=== PATIENT | male | born 1970 | race Caucasian/White ===

== ENCOUNTER 2019-01-10 01:12 | Emergency (ER) | payer OTHER ==
[~2019-01-10] VITALS: Ht 175.3 cm; Wt 88.5 kg
[~2019-01-10 01:12] MED LIST: (None)15 G1 TOP; Cyclobenzaprine5 MG PO; Flonase 0.05% N16 GM; HYDACE5 PO; IBUP600 PO; NAPR500 PO; Naprosyn500 MG PO; OXYM.05NI; POLTRIOPSO OD; Percocet 10-321 EACH PO; Percocet 5-3251 EACH PO; Pseudoephedrine30 MG PO; Triamcinolone A15 G4 TOP
== END 2019-01-10 06:38 | disposition left against medical advice (07) ==
LOC: ER 01:12
DX: Z53.21 Procedure and treatment not carried out due to patient leaving prior to being seen by health care provider (principal); R20.0 Anesthesia of skin

== ENCOUNTER 2020-03-17 17:30 | Emergency (ER) | payer OTHER ==
[~2020-03-17] VITALS: Ht 175.3 cm; Wt 86.2 kg
[2020-03-17] MEDS ORDERED: IBUP400 PO (19:10)
== END 2020-03-17 19:19 | disposition home or self-care (01) ==
LOC: ER 17:30
DX: R10.10 Upper abdominal pain, unspecified (principal); R06.02 Shortness of breath; M54.5 Low back pain; F17.210 Nicotine dependence, cigarettes, uncomplicated; Z59.0 Homelessness; Z88.0 Allergy status to penicillin; Z91.013 Allergy to seafood; W18.30XA Fall on same level, unspecified, initial encounter; Y93.89 Activity, other specified
CPT/HCPCS: 72100; 99283-25

== ENCOUNTER 2020-03-18 12:55 | Inpatient (IN) | payer OTHER ==
[~2020-03-18] VITALS: Ht 170.2 cm; Wt 93.3 kg
[~2020-03-18 12:55] MED LIST changes: +IBUP400 PO
[2020-03-18 13:46] LABS: BASOPHILS ABSOLUTE AUTO 0.05 K/mm3 (0.00-0.23); BASOPHILS PERCENT AUTO 1 % (0-2); EOSINOPHILS ABSOLUTE AUTO 0.26 K/mm3 (0.00-0.68); EOSINOPHILS PERCENT AUTO 3 % (0-6); IMMATURE GRAN ABSOLUTE AUTO 0.03 K/mm3 (0.00-0.10); IMMATURE GRAN PERCENT AUTO 0 % (0-1); LYMPHOCYTES ABSOLUTE AUTO 1.97 K/mm3 (0.84-5.20); LYMPHOCYTES PERCENT AUTO 26 % (21-46); MONOCYTES ABSOLUTE AUTO 1.18 K/mm3 (0.16-1.47); MONOCYTES PERCENT AUTO 15 % (4-13); Mean Corpuscular HGB 29.6 pg (26.0-34.0); Mean Corpuscular HGB Conc 32.4 g/dL (31.5-36.5); Mean Corpuscular Volume 91 fL (80-100); Mean Platelet Volume 9.8 fL (9.1-12.4); NEUTROPHILS ABSOLUTE AUTO 4.22 K/mm3 (1.96-9.15); NEUTROPHILS PERCENT AUTO 55 % (41-73); Platelet Count 318 K/mm3 (150-400); RDW Coefficient Variation 13.9 % (11.7-14.2); RDW Standard Deviation 47.3 fL (35.1-46.3); Red Blood Cell Count 4.05 M/mm3 (4.30-5.90); White Blood Cell Count 7.71 K/mm3 (4.00-11.30)
[2020-03-18 14:00] LABS: Alanine Aminotransfer (ALT/SGP 76 U/L (12-78); Albumin, Blood 2.8 g/dL (3.4-5.0); Albumin/Globulin Ratio 0.8 (0.8-1.8); Alk Phos 127 U/L (50-136); Anion Gap 6 mmol/L (6-16); Aspartate Aminotrans (AST/SGOT 26 U/L (12-37); Bilirubin, Total 0.4 mg/dL (0.1-1.0); Blood Urea Nitrogen 37 mg/dL (8-24); Bun/Creatinine Ratio 34.3 (12.0-20.0); CO2, Blood 22 mmol/L (21-32); Calcium, Blood 8.1 mg/dL (8.5-10.1); Chloride, Blood 113 mmol/L (98-108); Creatinine, Blood 1.08 mg/dL (0.60-1.20); Globulin, Blood 3.7 g/dL (2.2-4.0); Glomerular Filtration Rate >60 (60-); Glucose, Blood 121 mg/dL (70-99); Potassium, Blood 4.9 mmol/L (3.5-5.5); Sodium, Blood 141 mmol/L (136-145); Total Protein, Blood 6.5 g/dL (6.4-8.2)
[2020-03-18 16:39] LABS: Source, Urine Clean Catch
[2020-03-18 16:45] LABS: Appearance, Urine Clear (Clear); Bilirubin, Urine Neg (Neg); Blood, Urine 5+ (Neg); Color, Urine Yellow (P-Yellow); Glucose Qualitative, Urine Neg (Neg); Ketones, Urine Neg (Neg); Leukocyte Esterase, Urine Neg (Neg); Nitrite, Urine Neg (Neg); Protein, Urine 4+ (Neg); Urobilinogen, Urine NORM (Normal)
[2020-03-18 16:55] LABS: Bacteria Rare /hpf; Squamous Epithelial Cells Not Seen /hpf (Few)
[2020-03-18 16:57] LABS: Yeast/Fungi Urine Few /hpf
[2020-03-18 19:58] LABS: U Amphetamine Screen Not Detected; U Barbituate Screen Not Detected; U Benzodiazapine Screen Not Detected; U Buprenorphine Screen Not Detected; U Cannabinoids Screen Not Detected; U Cocaine Screen Not Detected; U Methadone Screen Not Detected; U Methamphetamine Screen DETECTED; U Opiates Screen Not Detected; U Oxycodone Screen Not Detected; U Phencyclidine Screen Not Detected; U Propoxyphene Screen Not Detected
--- NOTE | 2020-03-19 06:52 | NUR ---
PATIENT ADMITTED FROM THE ED WITH ELEVATED BLOOD PRESSURES ALONG WITH LOWER EXTREMITY EDEMA. PATIENT STATES THAT HE HAS NEVER BEEN DIAGNOSED WITH A HEART CONDITION. BLOOD PRESSURES WERE UNRESPONSIVE TO APRESOLINE OR CATAPRES. BLOOD PRESSURE DOES RESPOND TO NITRO PASTE WHICH BROUGHT HIS BLOOD PRESSURES TO 140'S SYSTOLIC. HE IS COMPLAINING OF A HEADACHE THIS MORNING SO NITRO PASTE WAS REMOVED A RESULT. VSS, NO COMPLAINTS OF PAIN. WILL CONTINUE TO MONITOR UNTIL END OF SHIFT
[2020-03-19 07:07] LABS: BASOPHILS ABSOLUTE AUTO 0.05 K/mm3 (0.00-0.23); BASOPHILS PERCENT AUTO 1 % (0-2); EOSINOPHILS ABSOLUTE AUTO 0.26 K/mm3 (0.00-0.68); EOSINOPHILS PERCENT AUTO 3 % (0-6); Hematocrit 35.4 % (37.0-53.0); Hemoglobin 11.5 g/dL (13.5-17.5); IMMATURE GRAN ABSOLUTE AUTO 0.03 K/mm3 (0.00-0.10); IMMATURE GRAN PERCENT AUTO 0 % (0-1); LYMPHOCYTES PERCENT AUTO 17 % (21-46); MONOCYTES ABSOLUTE AUTO 1.18 K/mm3 (0.16-1.47); MONOCYTES PERCENT AUTO 12 % (4-13); Mean Corpuscular HGB 29.9 pg (26.0-34.0); Mean Corpuscular HGB Conc 32.5 g/dL (31.5-36.5); Mean Corpuscular Volume 92 fL (80-100); Mean Platelet Volume 9.7 fL (9.1-12.4); NEUTROPHILS ABSOLUTE AUTO 6.46 K/mm3 (1.96-9.15); NEUTROPHILS PERCENT AUTO 68 % (41-73); Platelet Count 321 K/mm3 (150-400); RDW Coefficient Variation 14.5 % (11.7-14.2); RDW Standard Deviation 48.6 fL (35.1-46.3); Red Blood Cell Count 3.85 M/mm3 (4.30-5.90); White Blood Cell Count 9.58 K/mm3 (4.00-11.30)
[2020-03-19 07:27] LABS: Anion Gap 6 mmol/L (6-16); Blood Urea Nitrogen 39 mg/dL (8-24); Bun/Creatinine Ratio 33.6 (12.0-20.0); CO2, Blood 20 mmol/L (21-32); Chloride, Blood 115 mmol/L (98-108); Creatinine, Blood 1.16 mg/dL (0.60-1.20); Glomerular Filtration Rate >60 (60-); Glucose, Blood 102 mg/dL (70-99); Potassium, Blood 5.3 mmol/L (3.5-5.5); Sodium, Blood 141 mmol/L (136-145); Troponin I <0.015 ng/mL (0.000-0.040)
--- NOTE | 2020-03-19 08:56 | NUR ---
pt sleepy this am, but wakes easily a/ox3, pleasant and coopertive with care, follows commands well, denies pain, lungs are clear dim in bases, resp even and unlabored, no cough noted, hrr, tele in place running sr per monitor, see strip, trace edema noted to b/l le, ppp+2, cap refill <3sec, vs stable, afebrile, iv site is clear and patent, btx4, abd flat soft nontender, voids without diff, skin c/w/d, maew, ind in room, jimmy, call light in reach.
--- NOTE | 2020-03-19 14:03 | NUR ---
Echocardiogram performed.
--- NOTE | 2020-03-19 15:24 | NUR ---
pt will be moving to medical floor, informed him. started him on metoprolol, b/p came down. doing ok but is working hard to breath, his sats are in the 90's, placed him on 2 liters 02 via n/c for comfort, his breathing did relax. daughter in room to visit, will take him via wheelchair when room is ready. call light in reach.
--- NOTE | 2020-03-19 15:37 | NUR ---
pt leaving for medical floor via wheelchair with power electronics research engineer in attendence, he has his belongings.
--- NOTE | 2020-03-19 15:57 | NUR ---
PATIENT TRANSFERRED FROM PCU 4 TO ROOM 304, REPORT RECEIVED FROM ARNAUD MORRIS. PATIENT IS A/OX4, UP INDEPENDENTLY IN RPPM. MAINTAINING SATS ON RA, B/P IMPROVING. DAUGHTER AT BEDSIDE. PATIENT ORIENTED TO ROOM AND USE OF CALL LIGHT. 20G IV TO R AC WNL AND SL. SR/ST ON TELE PER REPORT. TOLERATING CARDIAC DIET.
--- NOTE | 2020-03-20 04:05 | NUR ---
SHIFT SUMMARY PT HAD SOME DIFFICULTY FALLING ASLEEP BUT SLEPT WELL ONCE ASLEEP. PT HAD A SHOWER AT THE START OF THE SHIFT. FOLLOWING SHOWER PT WAS VERY SHORT OF BREATH. PT BECOMES SHORT OF BREATH EASILY WITH LITTLE EXERTION. 2 L O2 NC PLACED ON PT FOR A SHORT WHILE WHILE SHORT OF BREATH. PT DID NOT RECOVER QUICKLY FROM EXERTIONAL SOB. PT HIGH 90'S ON RA. PT HYPERTENSIVE THIS EVENING WITH SYSTOLIC PRESSURES IN THE 170'S. 12.5 MG METOPROLOL GIVEN ALONG WITH 1/2 INCH OF NITRO PASTE TO LEFT CHEST WALL WITH ONLY SLIGHT IMPROVEMENT. APRESOLINE 20 MG GIVEN. BLOOD PRESSURES FINALLY IMPROVED TO SYSTOLIC IN THE 140'S. PT SR 84 THIS EVENING ON TELEMETRY. TYLENOL GIVEN FOR SLIGHT HEADACHE AND PREVENTION OF WORSENING HEADACHE WITH NITRO PASTE. PT RESTING IN BED AT THIS TIME. WILL CONTINUE TO MONITOR AND REPORT TO DAY RN.
[2020-03-20 05:00] LABS: BASOPHILS ABSOLUTE AUTO 0.08 K/mm3 (0.00-0.23); BASOPHILS PERCENT AUTO 1 % (0-2); EOSINOPHILS ABSOLUTE AUTO 0.45 K/mm3 (0.00-0.68); EOSINOPHILS PERCENT AUTO 5 % (0-6); Hematocrit 35.1 % (37.0-53.0); Hemoglobin 11.3 g/dL (13.5-17.5); IMMATURE GRAN ABSOLUTE AUTO 0.02 K/mm3 (0.00-0.10); IMMATURE GRAN PERCENT AUTO 0 % (0-1); LYMPHOCYTES ABSOLUTE AUTO 2.24 K/mm3 (0.84-5.20); LYMPHOCYTES PERCENT AUTO 24 % (21-46); MONOCYTES ABSOLUTE AUTO 1.54 K/mm3 (0.16-1.47); MONOCYTES PERCENT AUTO 16 % (4-13); Mean Corpuscular HGB 29.3 pg (26.0-34.0); Mean Corpuscular HGB Conc 32.2 g/dL (31.5-36.5); Mean Corpuscular Volume 91 fL (80-100); Mean Platelet Volume 10.1 fL (9.1-12.4); NEUTROPHILS ABSOLUTE AUTO 5.16 K/mm3 (1.96-9.15); NEUTROPHILS PERCENT AUTO 55 % (41-73); Platelet Count 351 K/mm3 (150-400); RDW Coefficient Variation 14.4 % (11.7-14.2); Red Blood Cell Count 3.86 M/mm3 (4.30-5.90); White Blood Cell Count 9.49 K/mm3 (4.00-11.30)
[2020-03-20 05:37] LABS: Albumin, Blood 2.5 g/dL (3.4-5.0); Anion Gap 5 mmol/L (6-16); Blood Urea Nitrogen 40 mg/dL (8-24); CO2, Blood 21 mmol/L (21-32); Calcium, Blood 7.9 mg/dL (8.5-10.1); Chloride, Blood 112 mmol/L (98-108); Glomerular Filtration Rate >60 (60-); Glucose, Blood 110 mg/dL (70-99); Phosphorus, Blood 4.3 mg/dL (2.5-4.9); Potassium, Blood 5.1 mmol/L (3.5-5.5); Sodium, Blood 138 mmol/L (136-145)
--- NOTE | 2020-03-20 17:14 | NUR ---
PT IS 49YO MALE, WHO WAS ADMITTED FOR ACUTE EXACERBATION PF CHF. PT IS ON TELE SINUS RHYTHM @90S, ON ROOM AIR AND O2 NEEDED. SOB UPON EXERTION AND POSITION CHANGING. PT HAD AN EPISODE OF SOB TODAY UPON EXERTION, HIS SATS WERE WNL ON ROOM AIR, FINE CRACKLES HEARD ON THE BASES OF HIS LUNGS. I CALLED AND MEDICATED THE PT PER ORDER WITH LASIX 40MG IV AND 0.5MG ATIVAN PO. PT ALSO HAD AN EPISODE OF HYPERTENSION OF SBP OF 180S, MEDICATED PER EMAR. PT TOLERATED WELL. NO GROVES. 20G ON RA. PT HAD AN CXR TODAY. WILL CONTINUE MONITOR UNTIL NEXT SHIFT REPORT.
--- NOTE | 2020-03-21 04:34 | NUR ---
SHIFT SUMMARY PT SLEPT BETTER THIS EVENING. CONTINUES TO HAVE SOB W/ EXERTION BUT APPEARS TO BE SLIGHTLY BETTER TONIGHT. PT DOES GET VERY SOB WITH MINIMAL EXERTION. REMAINED ON RA THROUGHOUT THE NIGHT. WITH O2 SATS IN THE HIGH 90'S. LUNG SOUNDS CLEAR IN TOP LOBES WITH MINIMAL CRACKLES TO BASES. NO COMPLAINTS OF PAIN. TELEMETRY SR 83. CONTINUES TO BE HTN. SLIGHT IMPROVEMENT WITH SYSTOLICS IN THE 160'S. PT COMPLIANT WITH FLUID RESTRICTION. PT RESTING COMFORTABLY AT THIS TIME. VITAL SIGNS STABLE. WILL CONTINUE TO MONITOR AND REPORT TO DAY RN.
[2020-03-21 04:48] LABS: Hematocrit 36.7 % (37.0-53.0); Hemoglobin 11.7 g/dL (13.5-17.5); Mean Corpuscular HGB 29.5 pg (26.0-34.0); Mean Corpuscular HGB Conc 31.9 g/dL (31.5-36.5); Mean Corpuscular Volume 92 fL (80-100); Mean Platelet Volume 9.8 fL (9.1-12.4); Platelet Count 349 K/mm3 (150-400); RDW Coefficient Variation 14.3 % (11.7-14.2); RDW Standard Deviation 48.4 fL (35.1-46.3); Red Blood Cell Count 3.97 M/mm3 (4.30-5.90); White Blood Cell Count 9.34 K/mm3 (4.00-11.30)
[2020-03-21 05:08] LABS: Anion Gap 5 mmol/L (6-16); Blood Urea Nitrogen 33 mg/dL (8-24); Bun/Creatinine Ratio 36.8 (12.0-20.0); CO2, Blood 22 mmol/L (21-32); Calcium, Blood 8.1 mg/dL (8.5-10.1); Chloride, Blood 109 mmol/L (98-108); Glomerular Filtration Rate >60 (60-); Glucose, Blood 151 mg/dL (70-99); Potassium, Blood 4.6 mmol/L (3.5-5.5); Sodium, Blood 136 mmol/L (136-145)
--- NOTE | 2020-03-21 16:18 | NUR ---
ALERT. ORIENTED. GETS SOB WITH VERY LITTLE EXERTION. FIRST PART STRESS TEST DONE. TELE ON. IV PATENT. EDEMA CHARLIE LE. INDEPENDENT IN ROOM. ADVISED TO USE URINAL SO WE CAN KEEP TRACK OF OUTPUT IS ON DIURETIC. NO C/O. WCTM
--- NOTE | 2020-03-22 04:48 | NUR ---
BOILER PLANT WORKER SUMMARY PT WAS AWAKE THE MAJORITY OF THE NIGHT APPEARING ANXIOUS BUT REPORTING NO SOB. PT TOOK A SHOWER AT 2100 AND TOLERATED THE EXERTION WELL. PT'S PM SYSTOLIC BLOOD PRESSURE WAS 163 SO HE WAS GIVEN LABETALOL AND METOPROLOL WHICH SEEMED TO HAVE LITTLE EFFECT HIS 0400 SBP WAS 160. PT WAS RUNNING SINUS RYTHYM IN THE 90'S PER DOOR FITTER. PT SAT AT THE BEDSIDE MULTIPLE TIMES DURING THE NIGHT AND STATED THAT HE WAS ANXIOUS ABOUT THE STRESS TEST IN THE AM, EDUCATION WAS PROVIDED. PT NPO AFTER 0200 PER ORDER FOR STRESS TEST. PT 02 STATS IN THE 90'S ON RA. PT IS CURRENTLY AT BEDSIDE W [employer] AND CALL LIGHT WITHIN REACH.
--- NOTE | 2020-03-22 17:30 | NUR ---
ALERT. ORIENTED. HIGH ANXIETY. ABLE TO CALM PATIENT WITHOUT MEDS. STEADY GAIT. SATS HIGH 90'S OFF OXYGEN. HAD STRESS TEST W/ AWARE. TELE ON W/PATIENT RUNNING SR. DIURESISING. WCTM.
--- NOTE | 2020-03-22 18:37 | NUR ---
patient wears socks and shoes for days at a time without changing and has sores to feet. redness, looks like "road rash", flaking skin. sts this has been going on for "weeks". advised will have md look at it tomorrow.
--- NOTE | 2020-03-23 03:16 | NUR ---
SHIFT SUMMARY PATIENT HAD NO ACUTE CHANGES OBSERVED. AXOX 4 AND INDEPENDENT IN ROOM. PIV REMAINS INTACT. SENIOR DENTIST REPORTS NSR 74. FLUID RESTRICTION 2,000 mL. REPORTED BILATERAL FEET PAIN AND RECEIVED TYLENOL 650 MG PER EMAR. REPORTED HOMELESS AND LACK OF FOOT CARE. VSS/FEBRILE. DENIES SOB AND N/V. BLOOD PRESSURES WNL 148/80 AT SHIFT CHANGE. USES URINAL AT BEDSIDE. DIURESING. COOPERATIVE WITH CARE. CALL LIGHT IN REACH. BED IN LOWEST POSITION. WILL CONTINUE TO MONITOR UNTIL DAY SHIFT NURSE ASSUMES CARE.
[2020-03-23 04:45] LABS: Hematocrit 35.5 % (37.0-53.0); Hemoglobin 11.6 g/dL (13.5-17.5); Mean Corpuscular HGB 29.7 pg (26.0-34.0); Mean Corpuscular HGB Conc 32.7 g/dL (31.5-36.5); Mean Corpuscular Volume 91 fL (80-100); Mean Platelet Volume 9.9 fL (9.1-12.4); Platelet Count 331 K/mm3 (150-400); RDW Coefficient Variation 14.2 % (11.7-14.2); RDW Standard Deviation 47.5 fL (35.1-46.3); Red Blood Cell Count 3.91 M/mm3 (4.30-5.90)
[2020-03-23 05:06] LABS: Anion Gap 5 mmol/L (6-16); Blood Urea Nitrogen 35 mg/dL (8-24); Bun/Creatinine Ratio 32.1 (12.0-20.0); CO2, Blood 25 mmol/L (21-32); Calcium, Blood 8.4 mg/dL (8.5-10.1); Chloride, Blood 109 mmol/L (98-108); Creatinine, Blood 1.09 mg/dL (0.60-1.20); Glomerular Filtration Rate >60 (60-); Glucose, Blood 137 mg/dL (70-99); Potassium, Blood 4.4 mmol/L (3.5-5.5); Sodium, Blood 139 mmol/L (136-145)
--- NOTE | 2020-03-23 14:40 | NUR ---
PICS TAKEN BILATERAL FEET.PATIENT STS HAS BEEN WEARING SOCKS AND SHOES FOR WEEK AT A TIME WITHOUT TAKING EITHER OFF AND HAS HAD SORES ON FEET FOR "WEEKS".BOTH FEET CLEANED WITH INTEGRITY, THEN TRIPLE ANTIBIOTIC APPLIED AND MEPILEX TO SOME AREAS AND TO OTHER AREAS; NONADHERING DRESSING, KERLIX,AND COBAN. MD ORDERED P.O. ANTIBIOTIC. EDEMA TO DORSUM OF FEET THAT DOES NOT APPEAR ASSOCIATED WITH SCABS. GOOD CIRCULATION TO AREA. CALLUS PRESENT WITH DRY, CRACKING SKIN TO BOTH FEET. WCTM
--- NOTE | 2020-03-23 15:43 | NUR ---
ALERT. ORIENTED. FOOT WOUNDS DRESSED WITH PICS TAKEN. POSSIBLE D'C TOMORROW. PATIENT UPSET WHEN CARE MANAGEMENT DISCUSSED D'C PLANS WITH HIM. PATIENT ADVOCATE WAS IN TO TALK TO PATIENT.PATIENT ALSO SEEMED TO BE NOT VERY HAPPY WITH PEOPLE HE WAS TALKING TO ON THE PHONE. LUNGS SOUNDING MUCH BETTER TODAY. TELE ON. [facility]
--- NOTE | 2020-03-24 04:06 | NUR ---
SHIFT SUMMARY: VSS. TEMP 99.1. AAOX3. ABLE TO COMMUNICATE NEEDS. PT STATES HE ONLY HAS EXERTIONAL SOB OCCASIONALLY. CONT W/ +1 EDEMA TO BLE. LSCTA. 02 98% ON RA. NO COUGHING. PER TELE MACHINE BOOKKEEPER, NORMAL SINUS RHYTHM, PULSE 82. PT STATES HE HAD A HARD DAY ON 03/23 DUE TO DISCUSSION W/ D/C AUDIO VISUAL EQUIPMENT RENTAL CLERK ABOUT ASSISTING W/ DETERMINING D/C LOCATION. PT APPEARED TO SLEEP WELL THROUGH THE NIGHT. NO ACUTE CONCERNS AT THIS TIME.
--- NOTE | 2020-03-24 09:00 | NUR ---
NO IV ACCESS PATIENT REQUESTING IV BE REMOVED "OR ELSE I'M JUST GOING TO WALK OUT OF HERE AND PULL IT OUT MYSELF." AFTER ADMINISTERING IV LASIX, IV REMOVED. RECEIVED VERBAL ORDER FOR NO IV ACCESS FROM DR. COOMBS. IV LASIX TO BE CHANGED TO PO PER HOSPITALIST.
--- NOTE | 2020-03-24 15:40 | NUR ---
PATIENT ASKING ABOUT UPDATES WITH DISCHARGE PLANNING AND HOUSING SITUATION. PATIENT WANTING TO TALK WITH CM RE THIS. Marjorie SMITH NOTIFIED. CM DIRECTOR EMANUEL, PATIENT ADVOCATE, AND THIS RN IN TO SPEAK WITH PATIENT. OPTIONS PROVIDED WERE [facility] FOR WHICH PATIENT ABSOLUTELY REFUSED. PT CLAIMS "I CAN NOT WORK AND THE [facility] REQUIRES ME TO WORK IF I STAY THERE 4 OR MORE DAYS." WHEN ASKED WHY PATIENT CAN'T WORK, PT STATES HE GETS SHORT OF BREATH GOING TO THE BATHROOM. PATIENT HAS BEEN UP IN ROOM AND TO BATHROOM INDEPENDENTLY, EVEN HAD SHOWER WITH NO EVIDENCE OF SHORTNESS OF BREATH. L/S CLEAR THROUGHOUT. AFTER DISCUSSION, PATIENT PACKED PERSONAL BELONGINGS IN BAG AND WALKED OUT OF HIS ROOM. WHEN THIS RN ASKED WHERE PATIENT WAS GOING, PATIENT KEPT WALKING AND ONCE STOPPED AT THE ELEVATOR, STATED "I'M GOING FOR A WALK." OFFERED TO TAKE PERSONAL BELONGINGS BACK TO ROOM, PATIENT REFUSED. EXPLAINED THAT PATIENT CAN ONLY BE OUT OF ROOM FOR 1 HOUR, OTHERWISE, HE WILL BE DISCHARGED. PATIENT NODDED IN AGREEMENT. PATIENT LEFT ROOM @ 1540.
--- NOTE | 2020-03-24 16:08 | NUR ---
Patient is back in room resting in bed.
--- NOTE | 2020-03-24 17:42 | NUR ---
Shift Summary A/Ox4, cooperative with care. Up in room independently, no signs of sob, dyspnea on exertion; no c/o diarrhea, pain, nausea. Appetite is great, fluid restrictions well within limits. Wound care completed and new dressings applied to bilateral dorsal foot. Patient had a shower today. Calls appropriately for needs. Low-grade fever of 99.5. Will continue to monitor.
--- NOTE | 2020-03-25 04:38 | NUR ---
SHIFT SUMMARY: VSS. AFEB. AAOX3. COMMUNICATES NEEDS. SBP 155 AT HS. DENIES SOB. BLE EDEMA IMPROVED, +2. DRESSING TO PLANTAR SURFACES OF B FEET CDI. DENIES PAIN. PT APPEARS TO HAVE SLEPT WELL. NO ACUTE CHANGES OVERNIGHT. WILL CONT TO MONITOR.
--- NOTE | 2020-03-25 07:45 | NUR ---
Irritable/Agitated Patient is irritable and agitated this morning. Attempted to redress patient's wounds to bilateral plantar foot, pt refused this RN to redress instead insisted he does it himself. Patient stated "I'm independent in the room, I can do this shit myself!" Observed patient placed dressing on foot. When this RN requested to listen to lungs, pt yelled "God, how many times do you have to listen to my lungs in the morning? 3? 4 times?" Explained that it was only once a shift. Patient states "Just hurry up man, I'm getting agitate!" L/S auscultated and clear t/o. Per patient request, curtains pulled and door to be kept closed.
--- NOTE | 2020-03-25 16:52 | NUR ---
Shift Summary Agitated and irritable this morning, but mood has improved some. Patient states brother will be coming to see him tomorrow. No new complaints. Ambulatory multiple times in hallway and in facility, no signs of dyspnea. Patient had shower early AM prior to dressing changes. VSS, afebrile.
--- NOTE | 2020-03-25 21:19 | NUR ---
ASSUMED CARE. HANG JUST GOT OUT OF THE SHOWER. MERCHANDISING CONSULTANT TO WASH CLOTHES FOR HIM. HE GOT HIMSELF ALL CLEANED UP. DISCUSSED CARE OF HIS FEET WHEN HE IS DISCHARGED. 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 NOW IS HOMELESS AND DOES NOT UNDERSTAND WHY PEOPLE WILL NOT HELP HIM OUT. TALKED ALOT ABOUT HOW HE HAS MONEY BUT THE GOVERMENT JUST WILL NOT ALLOW HIM TO HAVE IT. MONEY IN UNEMPLOYMENT AND [employer]IMULUS CHECKS. STATES HE CAN NOT GO BACK TO [place], THEY WILL HAVE HIM WORK. ENCOURAGE HIM TO CONTINUE TO WORK ON FINDING RESOURCES THAT WILL HELP HIM. APPARENTLY HAS PROBLEMS WITH HIS SISTER WHERE SHE TOLD HIM SHE HAS HER OWN LIFE WELL. PROVIDED CARE ON HIS FEET, REDRESSED WITH ANTIBOTIC OINTMENT AND DRESSING. MEDS GIVEN. NO OTHER NEEDS TO NOTE. CALL LIGHT IN REACH.
--- NOTE | 2020-03-25 23:37 | NUR ---
BLAS SUPERVISOR MAIL CARRIERS CALLED IN REGARDS TO TUMS FOR HEART BURN. ORDER RECEIVED.
--- NOTE | 2020-03-26 00:39 | NUR ---
HANG IS CONSTANTLY ASKING FOR SOMETHING TO DRINK. STATES HE CAN'T FOLLOW THE RESTRICTION. HE IS VERY INSISTANT THAT HE HAS SOMETHING DUE TO DRY MOUTH. OFFER MOUTH SWABS, HE DID NOT WANT THEM. HE HAS A GLASS OF WATER IN HIS ROOM, TOLD HIM HE WILL NOT GET ANY MORE THIS SHIFT. HE NEEDS TO SIP ON IT THROUGHOUT THE NIGHT.
--- NOTE | 2020-03-26 05:40 | NUR ---
SHIFT SUMARY: AOX3, INDEPENDENT IN THE ROOM. TOOK SHOWER, HAD CLOTHES WASHED. DENIED ANY PAIN OR DISCOMFORT. DRESSINGS TO FEET CHANGED, BLISTERS HEALING WELL. EDUCATED ON FOOT CARE AND PREVENTION. DISCUSSED RESOURCES. HE FEELS THAT STAFF SHOULD MAKE CALLS FOR HIM. TALKED ABOUT HAVING MONEY IN UNEMPLOYMENT AND STIMULUS CHECKS THAT THE GOVERMENT IS NOT GIVING HIM. STATES HE SISTER TOLD HIM SHE HAS HER OWN LIFE TO DEAL WITH. DOES NOT WANT TO GO TO THE [facility]. NOT COMPLIANT WITH CARE HE DID NOT FOLLOW THE FLUIDS RESTRICTIONS. HE WOULD GET FRUSTRATED THAT WE DID NOT BRING HIM MORE FLUIDS THROUGHOUT THE NIGHT. PRETTY SURE HE USED THE SINK TO DRINK MORE WATER. VS WNL, AFEBRILE. NO ACUTE CHANGES. CALL LIGHT REMAINED IN REACH AND USED APPROPRIATLY.
--- NOTE | 2020-03-26 08:42 | NUR ---
PT LEFT FLOOR TO MEET A FRIEND OUTSIDE IN PARKING LOT. PT WAS ABLE TO WALK WITH OUT ASSISTANCE. SECURITY NOTIFIED.
--- NOTE | 2020-03-26 09:57 | NUR ---
0930 PT BACK IN ROOM.
--- NOTE | 2020-03-26 11:17 | NUR ---
PT JUST LEFT ROOM AND FLOOR. STATED "I WILL BE BACK IN A COUPLE MINUTES."
--- NOTE | 2020-03-26 11:36 | NUR ---
PT IS BACK IN ROOM.
[2020-03-26] MEDS ORDERED: AMLO5 PO (13:41)
[2020-03-26] MEDS ORDERED: ASPI81CH PO (13:43)
[2020-03-26] MEDS ORDERED: FURO40 PO (13:45)
[2020-03-26] MEDS ORDERED: LISI20 PO (13:46)
--- NOTE | 2020-03-26 13:47 | NUR ---
SHIFT SUMMARY. 1250 WHILE ON LUNCH BREAK THIS RN RECIEVED CALL FROM CN THAT PT MAY HAVE DISCHARGED SELF WITHOUT D/C INSTRUCTIONS OR MEDICATIONS FILLED. AFTER RETURNING FROM BREAK, EMAIL PRODUCER REPORTED PT CAME OUT OF ROOM AND STATED "FUCK YOU GUYS, THE NURSE CAN JUST SEND MY MEDICATIONS TO PHARMACY." PT THEN DEPARTED FACILITY. DR. COOMBS NOTIFIED. 1335 PT RETURNED TO ROOM [facility] THAT HE WAS LOOKING FOR A BRACELET. PT NOTIFIED THAT HIS NEW RX WERE SENT TO [facility] THAT WAS LISTED PREFERED. PT REPLIED, "IT DOESN'T MATTER, I DON'T NEED THEM." PT THEN DEPARTED FACILITY FOR A SECOND TIME.
[2020-03-26] MEDS ORDERED: TOPROL XL25 MG PO (13:51)
== END 2020-03-26 13:29 | disposition left against medical advice (07) | DRG 293 ==
LOC: ER 12:55 → PCU 12:56 → MEDS 03-19 15:47
PROVIDERS: Emergency Medicine; Internal Medicine; Nurse Practitioner Acute Care; Physician Assistant; ADMIT Internal Medicine
DX: I11.0 Hypertensive heart disease with heart failure (principal); I50.41 Acute combined systolic (congestive) and diastolic (congestive) heart failure; Z59.0 Homelessness; Z20.828 Contact with and (suspected) exposure to other viral communicable diseases; F15.10 Other stimulant abuse, uncomplicated; Z87.891 Personal history of nicotine dependence; I45.81 Long QT syndrome; K59.00 Constipation, unspecified; S90.822A Blister (nonthermal), left foot, initial encounter; S90.821A Blister (nonthermal), right foot, initial encounter; X58.XXXA Exposure to other specified factors, initial encounter; I16.0 Hypertensive urgency
CPT/HCPCS: 36415; 71045; 71046; 74176; 78452; 80048; 80053; 80069; 81001; 83690; 83880; 84484; 85025; 85027; 93005; 93010; 93017; 93306; 94640; 94760; 94762; 96374; 96375; 98960; 99285-25; A9270; A9270-GY; A9500; J0360; J0706; J1170; J1650; J1940; J2405; J2785

== ENCOUNTER 2020-03-26 20:46 | Emergency (ER) | payer OTHER ==
[~2020-03-26] VITALS: Ht 175.3 cm; Wt 86.2 kg
[~2020-03-26 20:46] MED LIST changes: +AMLO5 PO; +ASPI81CH PO; +FURO40 PO; +LISI20 PO; +TOPROL XL25 MG PO
[2020-03-26 21:32] LABS: BASOPHILS ABSOLUTE AUTO 0.09 K/mm3 (0.00-0.23); BASOPHILS PERCENT AUTO 1 % (0-2); EOSINOPHILS ABSOLUTE AUTO 0.45 K/mm3 (0.00-0.68); EOSINOPHILS PERCENT AUTO 5 % (0-6); Hematocrit 35.1 % (37.0-53.0); Hemoglobin 11.5 g/dL (13.5-17.5); IMMATURE GRAN ABSOLUTE AUTO 0.02 K/mm3 (0.00-0.10); IMMATURE GRAN PERCENT AUTO 0 % (0-1); LYMPHOCYTES ABSOLUTE AUTO 3.25 K/mm3 (0.84-5.20); LYMPHOCYTES PERCENT AUTO 37 % (21-46); MONOCYTES ABSOLUTE AUTO 1.09 K/mm3 (0.16-1.47); MONOCYTES PERCENT AUTO 13 % (4-13); Mean Corpuscular HGB 29.7 pg (26.0-34.0); Mean Corpuscular HGB Conc 32.8 g/dL (31.5-36.5); Mean Corpuscular Volume 91 fL (80-100); Mean Platelet Volume 9.8 fL (9.1-12.4); NEUTROPHILS ABSOLUTE AUTO 3.79 K/mm3 (1.96-9.15); NEUTROPHILS PERCENT AUTO 44 % (41-73); Platelet Count 342 K/mm3 (150-400); RDW Coefficient Variation 13.6 % (11.7-14.2); RDW Standard Deviation 45.5 fL (35.1-46.3); Red Blood Cell Count 3.87 M/mm3 (4.30-5.90); White Blood Cell Count 8.69 K/mm3 (4.00-11.30)
[2020-03-26 21:54] LABS: Alanine Aminotransfer (ALT/SGP 69 U/L (12-78); Albumin, Blood 2.7 g/dL (3.4-5.0); Albumin/Globulin Ratio 0.7 (0.8-1.8); Alk Phos 104 U/L (50-136); Anion Gap 6 mmol/L (6-16); Aspartate Aminotrans (AST/SGOT 35 U/L (12-37); Bilirubin, Total 0.3 mg/dL (0.1-1.0); Blood Urea Nitrogen 36 mg/dL (8-24); Bun/Creatinine Ratio 28.6 (12.0-20.0); CO2, Blood 25 mmol/L (21-32); Calcium, Blood 8.2 mg/dL (8.5-10.1); Chloride, Blood 113 mmol/L (98-108); Creatinine, Blood 1.26 mg/dL (0.60-1.20); Globulin, Blood 3.7 g/dL (2.2-4.0); Glomerular Filtration Rate >60 (60-); Glucose, Blood 103 mg/dL (70-99); Potassium, Blood 4.2 mmol/L (3.5-5.5); Sodium, Blood 144 mmol/L (136-145); Total Protein, Blood 6.4 g/dL (6.4-8.2); Troponin I <0.015 ng/mL (0.000-0.040)
== END 2020-03-26 22:44 | disposition home or self-care (01) ==
LOC: ER 20:46
PROVIDERS: Emergency Medicine
DX: I50.9 Heart failure, unspecified (principal); Z91.14 Patient's other noncompliance with medication regimen; Z88.0 Allergy status to penicillin; Z91.013 Allergy to seafood; Z79.82 Long term (current) use of aspirin; Z79.899 Other long term (current) drug therapy; Z87.891 Personal history of nicotine dependence
CPT/HCPCS: 36415; 71045; 80053; 83880; 84484; 85025; 93005; 93010; 96374; 99285-25; J1940

== ENCOUNTER 2021-12-03 15:03 | Emergency (ER) | payer OTHER ==
[~2021-12-03] VITALS: Ht 175.3 cm; Wt 90.7 kg
[2021-12-03 15:49] LABS: BASOPHILS ABSOLUTE AUTO 0.02 K/mm3 (0.00-0.23); BASOPHILS PERCENT AUTO 0 % (0-2); EOSINOPHILS ABSOLUTE AUTO 0.07 K/mm3 (0.00-0.68); EOSINOPHILS PERCENT AUTO 1 % (0-6); Hematocrit 42.8 % (37.0-53.0); Hemoglobin 14.1 g/dL (13.5-17.5); IMMATURE GRAN ABSOLUTE AUTO 0.05 K/mm3 (0.00-0.10); IMMATURE GRAN PERCENT AUTO 0 % (0-1); LYMPHOCYTES ABSOLUTE AUTO 2.18 K/mm3 (0.84-5.20); LYMPHOCYTES PERCENT AUTO 18 % (21-46); MONOCYTES ABSOLUTE AUTO 1.15 K/mm3 (0.16-1.47); MONOCYTES PERCENT AUTO 9 % (4-13); Mean Corpuscular HGB 29.6 pg (26.0-34.0); Mean Corpuscular HGB Conc 32.9 g/dL (31.5-36.5); Mean Corpuscular Volume 90 fL (80-100); Mean Platelet Volume 9.6 fL (9.1-12.4); NEUTROPHILS ABSOLUTE AUTO 8.89 K/mm3 (1.96-9.15); NEUTROPHILS PERCENT AUTO 72 % (41-73); Platelet Count 232 K/mm3 (150-400); RDW Coefficient Variation 13.2 % (11.7-14.2); RDW Standard Deviation 43.3 fL (35.1-46.3); Red Blood Cell Count 4.77 M/mm3 (4.30-5.90); White Blood Cell Count 12.36 K/mm3 (4.00-11.30)
[2021-12-03 16:07] LABS: Albumin/Globulin Ratio 0.7 (0.8-1.8); Bilirubin, Total 0.4 mg/dL (0.1-1.0); Bun/Creatinine Ratio 13.6 (12.0-20.0); Calcium, Blood 8.9 mg/dL (8.5-10.1); Creatinine, Blood 0.96 mg/dL (0.60-1.20); Globulin, Blood 4.4 g/dL (2.2-4.0); Potassium, Blood 3.7 mmol/L (3.5-5.5); Total Protein, Blood 7.4 g/dL (6.4-8.2)
[2021-12-03] MEDS ORDERED: Vibramycin100 MG PO (17:50)
[2021-12-03] MEDS ORDERED: CEPH500 PO (17:50)
== END 2021-12-03 18:07 | disposition home or self-care (01) ==
LOC: ER 15:03
PROVIDERS: Emergency Medicine
DX: L03.115 Cellulitis of right lower limb (principal); I50.9 Heart failure, unspecified; Z88.0 Allergy status to penicillin; Z91.013 Allergy to seafood; Z79.82 Long term (current) use of aspirin; Z79.899 Other long term (current) drug therapy; Z87.891 Personal history of nicotine dependence
CPT/HCPCS: 80053; 83605; 85025; 93971; A9270; J0690